=== PATIENT | female | born 1960 | race Caucasian/White ===

== ENCOUNTER → 2023-07-04 | Emergency (ER) | payer OTHER ==
[~2023-07-04] MED LIST: HYDROMORPHONE HCL 1 MG/ML INJ ONE; MORPHINE 4 MG/ML SYR ONE
--- NOTE | 2023-07-04 05:39 | ER ---
Nurse's Notes [facility] Name: Carla Martin Age: 62 yrs Sex: Female : 1960 Arrival Date: 07/04/2023 Time: 03:01 Bed 5 Private MD: Diagnosis: Fracture of upper end of humerus-left Presentation: 07/04 03:15 Chief complaint: Patient states: left shoulder pain of 10 that radiates to left upper pf1 arm,onset 0100 this AM. Patient stated she was cleaning the kitchen, slipped and fell,landed onto left shoulder on the kitchen tile. Patient denies any head injury. Coronavirus screen: Vaccine status: Patient reports receiving the 2nd dose of the covid vaccine. Client denies travel out of the [place] in the last 14 days. At this time, the client does not indicate any symptoms associated with coronavirus-19. Ebola Screen: Patient negative for fever greater than or equal to 101.5 degrees Fahrenheit, and additional compatible Ebola Virus Disease symptoms. Initial Sepsis Screen: Does the patient meet any 2 criteria? HR > 90 bpm. No. Patient's initial sepsis screen is negative. Does the patient have a suspected source of infection?. Risk Assessment: Do you want to hurt yourself or someone else? Patient reports no desire to harm self or others. 03:15 Method Of Arrival: Ambulatory pf1 03:15 Acuity: GABINO 3 pf1 03:46 Onset of symptoms was July 04, 2023. jw7 Historical: - Allergies: 03:20 No Known Allergies; pf1 - PMHx: 03:20 Hypertensive disorder; acid reflux; anxiety; pf1 - PSHx: 03:20 tubal ligation; pf1 - Immunization history:: Adult Immunizations up to date, Client reports receiving the 2nd dose of the Covid vaccine, Last tetanus immunization: < 10 years ago Flu vaccine is not up to date. - Social history:: Smoking status: Reported history of juuling and/or vaping. Patient uses alcohol, occasionally. Patient/guardian denies using street drugs. Screenin:45 [facility] ED Fall Risk Assessment (Adult) History of falling in the last 3 months, jw7 including since admission Yes- single mechanical fall (1 pt) Confusion or Disorientation No (0 pts) Intoxicated or Sedated No (0 pts) Impaired Gait No (0 pts) Mobility Assist Device Used No (0 pt) Altered Elimination No (0 pt) Score/Fall Risk Level 0 - 2 = Low Risk Oriented to surroundings, Maintained a safe environment, Educated pt \T\ family on fall prevention, incl call for assistance when getting out of bed. Abuse screen: Denies threats or abuse. Denies injuries from another. Nutritional screening: No deficits noted. Tuberculosis screening: No symptoms or risk factors identified. Assessment: 03:44 General: Appears in no apparent distress. uncomfortable, Behavior is calm, cooperative. jw7 Pain: Complains of pain in left shoulder Pain does not radiate. Pain currently is 10 out of 10 on a pain scale. Quality of pain is described as sharp, throbbing, Pain began suddenly, Is continuous. Neuro: Barros Agitation-Sedation Scale (RASS): 0 - Alert and Calm Level of Consciousness is awake, alert, obeys commands, Oriented to person, place, time, situation. Cardiovascular: Capillary refill < 3 seconds Patient's skin is warm and dry. Respiratory: Airway is patent Trachea midline Respiratory effort is even, unlabored, Respiratory pattern is regular, symmetrical. GI: No deficits noted. No signs and/or symptoms were reported involving the gastrointestinal system. : No deficits noted. No signs and/or symptoms were reported regarding the genitourinary system. EENT: No deficits noted. No signs and/or symptoms were reported regarding the EENT system. Derm: Skin is intact, is healthy with good turgor, Skin is dry, Skin is normal, Skin temperature is warm. Musculoskeletal: Circulation, motion, and sensation intact. Range of motion: limited in left shoulder. 04:30 Reassessment: Patient appears in no apparent distress at this time. No changes from jw7 previously documented assessment. Patient and/or family updated on plan of care and expected duration. Pain level reassessed. Patient is alert, oriented x 3, equal unlabored respirations, skin warm/dry/pink. 05:38 Reassessment: Patient appears in no apparent distress at this time. No changes from jw7 previously documented assessment. Patient and/or family updated on plan of care and expected duration. Pain level reassessed. Patient is alert, oriented x 3, equal unlabored respirations, skin warm/dry/pink. Vital Signs: 03:15 BP 142 / 85; Pulse 110; Resp 16; Temp 97.5; Pulse Ox 97% on R/A; Weight 72.57 kg; pf1 Height 5 ft. 1 in. ; Pain 10/10; 03:40 BP 139 / 84; Pulse 110; Resp 17 S; Pulse Ox 97% on R/A; jw7 04:30 BP 124 / 81; Pulse 108; Resp 16 S; Pulse Ox 96% on R/A; jw7 05:39 BP 129 / 82; Pulse 108; Resp 16 S; Pulse Ox 98% on R/A; jw7 03:15 Body Mass Index 30.23 (72.57 kg, 154.94 cm) pf1 03:15 Pain Scale: Adult pf1 ED Course: 03:05 Patient arrived in ED. ag3 03:19 Jag Perez PA is PHCP. cp 03:19 Jag Hernandez MD is Attending Physician. cp 03:20 Triage completed. pf1 03:45 Patient has correct armband on for positive identification. Bed in low position. Call jw7 light in reach. 03:46 Arm band placed on. jw7 05:23 XRAY Shoulder LEFT 2 view In Process Unspecified. EDMS 05:37 Nishant Nunez MD is Referral Physician. cp 05:40 No provider procedures requiring assistance completed. Patient did not have IV access jw7 during this emergency room visit. 05:41 Provided Education on: discharge instructions. jw7 Administered Medications: 03:43 Drug: morphine IM 4 mg IM once Route: IM; Site: right deltoid; jw7 05:38 Follow up: Response: No adverse reaction; No change in condition jw7 05:38 Drug: HYDROmorphone IM 1 mg IM once Route: IM; Site: left deltoid; jw7 06:03 Follow up: Response: No adverse reaction jw7 Medication: 05:41 VIS not applicable for this client. jw7 Outcome: 05:38 Discharge ordered by . cp 06:03 Discharged to home ambulatory, jw7 06:03 Condition: stable 06:03 Discharge instructions given to patient, Instructed on discharge instructions, follow up and referral plans. medication usage, Demonstrated understanding of instructions, follow-up care, medications, Prescriptions given X 2, 06:03 Patient left the ED. jw7 Signatures: Dispatcher [employer] EDPA Jag Perez PA PA Mar Nam ag3 Vanesa Lares, RN RN jw7 Sheryl Kong, RN RN pf1
--- NOTE | 2023-07-04 05:39 | EDPHYS ---
Physician Documentation [facility] Name: Carla Martin Age: 62 yrs Sex: Female : 1960 Arrival Date: 07/04/2023 Time: 03:01 Bed 5 Private MD: ED Physician Jag Hernandez HPI: 07/04 03:33 This 62 yrs old Female presents to ER via Ambulatory with complaints of Fall Injury, cp Shoulder Pain. 03:33 The patient or guardian complains of decreased range of motion, an injury, pain, that cp is acute. left shoulder. Context: slip and fall in kitchen at home. Onset: The symptoms/episode began/occurred this morning, about 0100. Associated signs and symptoms: Pertinent negatives: abdominal pain, chest pain, neck pain, Numbness in left hand and left arm Weakness in left hand and left arm. Severity of symptoms: in the emergency department the symptoms a " 10" out of "10". Treatment prior to arrival includes: no previous treatment. 03:33 Modifying factors: The symptoms are aggravated by movement. cp Historical: - Allergies: 03:20 No Known Allergies; pf1 - PMHx: 03:20 Hypertensive disorder; acid reflux; anxiety; pf1 - PSHx: 03:20 tubal ligation; pf1 - Immunization history:: Adult Immunizations up to date, Client reports receiving the 2nd dose of the Covid vaccine, Last tetanus immunization: < 10 years ago Flu vaccine is not up to date. - Social history:: Smoking status: Reported history of juuling and/or vaping. Patient uses alcohol, occasionally. Patient/guardian denies using street drugs. ROS: 03:35 MS/extremity: Positive for decreased range of motion, pain, of the left shoulder, cp Negative for deformity, paresthesias, 03:35 Constitutional: Negative for body aches, chills, fever, cp 03:35 Neck: Negative for pain with movement, pain at rest, stiffness, bony tenderness, 03:35 Cardiovascular: Negative for chest pain, 03:35 Abdomen/GI: Negative for abdominal pain, 03:35 Back: Negative for pain at rest, pain with movement, 03:35 Neuro: Negative for altered mental status, headache, loss of consciousness, syncope, weakness, 03:35 All other systems are negative, Exam: 03:40 Constitutional: The patient appears in no acute distress, alert, awake, non-toxic, well cp developed, well nourished, in obvious pain, uncomfortable, 03:40 Head/Face: Normocephalic, atraumatic. cp 03:40 Eyes: Periorbital structures: appear normal, Conjunctiva: normal, no exudate, no cp injection, Sclera: no appreciated abnormality, Lids and lashes: appear normal, bilaterally, 03:40 ENT: External ear(s): are unremarkable, Nose: is normal, Mouth: Lips: moist, Oral mucosa: moist, Posterior pharynx: is normal, airway is patent, no erythema, no exudate, 03:40 Neck: C-spine: vertebral tenderness, is not appreciated, crepitus, is not appreciated, ROM/movement: is normal, is supple, without pain, no range of motions limitations, 03:40 Chest/axilla: Inspection: normal, Palpation: is normal, no crepitus, no tenderness, 03:40 Cardiovascular: Rate: tachycardic, Rhythm: regular, Pulses: Pulses are 2+ in left radial artery. 03:40 Respiratory: the patient does not display signs of respiratory distress, Respirations: normal, no use of accessory muscles, no retractions, labored breathing, is not present, Breath sounds: are clear throughout, no decreased breath sounds, no stridor, no wheezing, 03:40 Abdomen/GI: Exam negative for discomfort, distension, guarding, Inspection: abdomen appears normal, 03:40 Back: pain, is absent, ROM is normal, 03:40 Musculoskeletal/extremity: Extremities: noted in the left shoulder: decreased ROM, pain, tenderness, There is no evidence of deformity, ROM: limited passive range of motion due to pain, in the left shoulder, the left shoulder Severe pain noted. 03:40 Neuro: Orientation: to person, place \\T\\ time. Mentation: is normal, Motor: moves all fours, strength is normal, Sensation: is normal, Vital Signs: 03:15 BP 142 / 85; Pulse 110; Resp 16; Temp 97.5; Pulse Ox 97% on R/A; Weight 72.57 kg; pf1 Height 5 ft. 1 in. ; Pain 10/10; 03:40 BP 139 / 84; Pulse 110; Resp 17 S; Pulse Ox 97% on R/A; jw7 04:30 BP 124 / 81; Pulse 108; Resp 16 S; Pulse Ox 96% on R/A; jw7 05:39 BP 129 / 82; Pulse 108; Resp 16 S; Pulse Ox 98% on R/A; jw7 03:15 Body Mass Index 30.23 (72.57 kg, 154.94 cm) pf1 03:15 Pain Scale: Adult pf1 MDM: 03:23 Patient medically screened. cp 03:45 Differential diagnosis: Anterior dislocation with fracture, Anterior dislocation cp without fracture, Posterior dislocation with fracture, Posterior dislocation without fracture, humeral head fracture. 05:38 Data reviewed: vital signs, nurses notes, radiologic studies, plain films. cp 05:38 I considered the following discharge prescriptions or medication management in the cp emergency department Medications were administered in the Emergency Department. See MAR. Independent interpretation of the following test(s) in the Emergency Department X-Ray: My interpretation is images of left shoulder show fracture of proximal left humerus. Test considered but Not performed: CT: chest. Care significantly affected by the following chronic conditions: Hypertension. Counseling: I had a detailed discussion with the patient and/or guardian regarding the historical points, exam findings, and any diagnostic results supporting the discharge/admit diagnosis, radiology results, the need for outpatient follow up, a orthopedic surgeon, to return to the emergency department if symptoms worsen or persist or if there are any questions or concerns that arise at home. Response to treatment: the patient's symptoms have markedly improved after treatment, and as a result, I will discharge patient. 07/04 03:29 Order name: XRAY Shoulder LEFT 2 view cp 07/04 05:09 Order name: Sling; Complete Time: 05:38 cp Administered Medications: 03:43 Drug: morphine IM 4 mg IM once Route: IM; Site: right deltoid; jw7 05:38 Follow up: Response: No adverse reaction; No change in condition jw7 05:38 Drug: HYDROmorphone IM 1 mg IM once Route: IM; Site: left deltoid; jw7 06:03 Follow up: Response: No adverse reaction jw7 Disposition Summary: 07/04/23 05:38 Discharge Ordered Notes: Location: Home cp Problem: new cp Symptoms: have improved cp Condition: Stable cp Diagnosis - Fracture of upper end of humerus - left cp Followup: cp - With: Nishant Nunez MD - When: 2 - 3 days - Reason: Recheck today's complaints Discharge Instructions: - Discharge Summary Sheet cp - Humerus Fracture Treated With Immobilization cp Forms: - Medication Reconciliation Form cp - Thank You Letter cp - Antibiotic Education cp - Prescription Opioid Use cp - Patient Portal Instructions cp - Leadership Thank You Letter cp Prescriptions: - acetaminophen-codeine 300-30 mg Oral tablet - take 2 tablet ORAL route every 8 hours as needed for pain; 20 tablet; Refills: cp 0, Product Selection Permitted - Ibuprofen 800 mg Oral Tablet - take 1 tablet ORAL route every 8 hours As needed take with food; 30 tablet; cp Refills: 0, Product Selection Permitted Signatures: Dispatcher [employer] EDMS Jag Perez PA PA cp Waits, Jodi RN RN jw7 Sheryl Kong RN RN pf1
[2023-07-04 07:06] VITALS: TEMP 97.5
[2023-07-04 07:14] VITALS: BP 129/82; O2SAT 98
--- NOTE | 2023-07-04 17:58 | RAD REPORT ---
EXAM DESCRIPTION: RAD - Shoulder Left 2 View - 07/04/2023 5:21 am CLINICAL HISTORY: The patient is 62 years old and is Female; fall;Pain Bed Name: 5 TECHNIQUE: 2 frontal views of the left shoulder. COMPARISON: No relevant prior studies available. FINDINGS: BONES/JOINTS: Slightly impacted fracture of the left humeral neck, without appreciable d islocation allowing for anterior only views. No other acute osseous abnormality. SOFT TISSUES: Unremarkable IMPRESSION: Slightly impacted fracture of the left humeral neck. Electronically signed by: Charles Mesa MD 07/04/2023 07:05 AM SCOURER Due to temporary technical issues with the PACS/Fluency reporting system, reports are being signed by the in house radiologists without review as a courtesy to insure prompt reporting. The interpreting radiologist is fully responsible for the content of the report.
== END ==
LOC: ER 03:01
DX: S42.202A Unspecified fracture of upper end of left humerus, initial encounter for closed fracture (principal); W01.0XXA Fall on same level from slipping, tripping and stumbling without subsequent striking against object, initial encounter
CPT/HCPCS: 73030; 96372; 99284; J1170

== ENCOUNTER 2023-10-04 19:05 | Emergency (ER) | payer OTHER ==
--- OUTSIDE RECORDS SUMMARY | 2023-10-04 19:08 | XMS REPORT | Continuity of Care Document ---
Author Name Unknown Address [address] [facility] [address] [place] [address] [facility] thconnect Address [address] [address] [address] [place] [address] Care Team Providers Care Mold Changer Name Role Phone Arlene Aden Attending Clinician Unavailable Problems Condition Name Condition Details Condition Category Status Onset Date Resolution Date Last Treatment Date Treating Clinician Comments Source [id number] Other closed displaced fracture of proximal end of right humerus, initial encounter Problem [facility] [id number] Pain, joint, shoulder, left Problem [facility] [id number] GERD without esophagiti s Problem [facility] [id number] Essential (primary) hypertensi on Problem [facility] Allergic rhinitis Non-season al allergic rhinitis, unspecifie d trigger Problem [facility] [id number] Moderate major depression Problem [facility] [id number] Mixed hyperlipid emia Problem [facility] Social History Social Habit Start Date Stop Date Quantity Comments Source Sex Assigned At [facility] History of Tobacco Use [facility] Smoking Status Start Date Stop Date Source Former Smoker 2023-08-04 00:00:00 2023-08-04 00:00:00 [facility] Medications Ordered Medication Name Filled Medication Name Start Date Stop Date Current Medication? Ordering Clinician Indication Dosage Frequency Signature (SIG) Comments Components Source Rosuvastati n Calcium 10 MG Rosuvastati n Calcium 10 MG 2024-0 1-30 00:00: 00 No 1{table t} QD Rosuvastat in Calcium 10 MG Rosuvastati n Calcium 10 MG Rosuvastati n Calcium 10 MG 2024-0 1-30 00:00: 00 No 1{table t} QD Rosuvastat in Calcium 10 MG Rosuvastati n Calcium 10 MG Rosuvastati n Calcium 10 MG 2024-0 1-30 00:00: 00 No 1{table t} QD Rosuvastat in Calcium 10 MG Rosuvastati n Calcium 10 MG Rosuvastati n Calcium 10 MG 2024-0 1-30 00:00: 00 No 1{table t} QD Rosuvastat in Calcium 10 MG traMADol-Ac etaminophen 37.5-325 MG traMADol-Ac etaminophen 37.5-325 MG 2024-0 1- 00:00: 00 No 1{table ts_as_n eeded} QID traMADol-A cetaminoph en 37.5-325 MG traMADol-Ac etaminophen 37.5-325 MG traMADol-Ac etaminophen 37.5-325 MG 2024-0 1- 00:00: 00 No 1{table ts_as_n eeded} QID traMADol-A cetaminoph en 37.5-325 MG traMADol-Ac etaminophen 37.5-325 MG traMADol-Ac etaminophen 37.5-325 MG 2024-0 1- 00:00: 00 No 1{table ts_as_n eeded} QID traMADol-A cetaminoph en 37.5-325 MG traMADol-Ac etaminophen 37.5-325 MG traMADol-Ac etaminophen 37.5-325 MG 2024-0 1-10 00:00: 00 No 1{table ts_as_n eeded} QID traMADol-A cetaminoph en 37.5-325 MG traMADol-Ac etaminophen 37.5-325 MG traMADol-Ac etaminophen 37.5-325 MG 2024-0 1-10 00:00: 00 No 1{table ts_as_n eeded} QID traMADol-A cetaminoph en 37.5-325 MG traMADol-Ac etaminophen 37.5-325 MG traMADol-Ac etaminophen 37.5-325 MG 2024-0 1-10 00:00: 00 No 1{table ts_as_n eeded} QID traMADol-A cetaminoph en 37.5-325 MG Acetaminoph en-Codeine 300-60 MG Acetaminoph en-Codeine 300-60 MG 2024-0 1-03 00:00: 00 No 1{table t_as_ne eded} QID Acetaminop hen-Codein e 300-60 MG Acetaminoph en-Codeine 300-60 MG Acetaminoph en-Codeine 300-60 MG 2024-0 1-03 00:00: 00 No 1{table t_as_ne eded} QID Acetaminop hen-Codein e 300-60 MG Lisinopril 5 MG Lisinopril 5 MG No 1{table t} QD Lisinopril 5 MG amLODIPine Besylate 10 MG amLODIPine Besylate 10 MG No 1{table t} QD amLODIPine Besylate 10 MG Ibuprofen 800 MG Ibuprofen 800 MG No Ibuprofen 800 MG Pantoprazol e Sodium 40 MG Pantoprazol e Sodium 40 MG No 1{table t} QD Pantoprazo le Sodium 40 MG Loratadine 10 MG Loratadine 10 MG No 1{table t} QD Loratadine 10 MG Sertraline HCl 25 MG Sertraline HCl 25 MG No 1{table t} QD Sertraline HCl 25 MG Pantoprazol e Sodium 40 MG Pantoprazol e Sodium 40 MG No 1{table t} QD Pantoprazo le Sodium 40 MG Lisinopril 5 MG Lisinopril 5 MG No 1{table t} QD Lisinopril 5 MG Loratadine 10 MG Loratadine 10 MG No Loratadine 10 MG Acetaminoph en-Codeine 300-30 MG Acetaminoph en-Codeine 300-30 MG No Acetaminop hen-Codein e 300-30 MG Ibuprofen 800 MG Ibuprofen 800 MG No Ibuprofen 800 MG Sertraline HCl 25 MG Sertraline HCl 25 MG No 1{table t} QD Sertraline HCl 25 MG amLODIPine Besylate 10 MG amLODIPine Besylate 10 MG No 1{table t} QD amLODIPine Besylate 10 MG Pantoprazol e Sodium 40 MG Pantoprazol e Sodium 40 MG No 1{table t} QD Pantoprazo le Sodium 40 MG Lisinopril 5 MG Lisinopril 5 MG No 1{table t} QD Lisinopril 5 MG Loratadine 10 MG Loratadine 10 MG No Loratadine 10 MG Acetaminoph en-Codeine 300-30 MG Acetaminoph en-Codeine 300-30 MG No Acetaminop hen-Codein e 300-30 MG Ibuprofen 800 MG Ibuprofen 800 MG No Ibuprofen 800 MG Sertraline HCl 25 MG Sertraline HCl 25 MG No 1{table t} QD Sertraline HCl 25 MG amLODIPine Besylate 10 MG amLODIPine Besylate 10 MG No 1{table t} QD amLODIPine Besylate 10 MG Lisinopril 5 MG Lisinopril 5 MG No 1{table t} QD Lisinopril 5 MG amLODIPine Besylate 10 MG amLODIPine Besylate 10 MG No 1{table t} QD amLODIPine Besylate 10 MG Ibuprofen 800 MG Ibuprofen 800 MG No Ibuprofen 800 MG Pantoprazol e Sodium 40 MG Pantoprazol e Sodium 40 MG No 1{table t} QD Pantoprazo le Sodium 40 MG Loratadine 10 MG Loratadine 10 MG No 1{table t} QD Loratadine 10 MG Sertraline HCl 25 MG Sertraline HCl 25 MG No 1{table t} QD Sertraline HCl 25 MG Lisinopril 5 MG Lisinopril 5 MG No 1{table t} QD Lisinopril 5 MG amLODIPine Besylate 10 MG amLODIPine Besylate 10 MG No 1{table t} QD amLODIPine Besylate 10 MG Ibuprofen 800 MG Ibuprofen 800 MG No Ibuprofen 800 MG Pantoprazol e Sodium 40 MG Pantoprazol e Sodium 40 MG No 1{table t} QD Pantoprazo le Sodium 40 MG Loratadine 10 MG Loratadine 10 MG No 1{table t} QD Loratadine 10 MG Sertraline HCl 25 MG Sertraline HCl 25 MG No 1{table t} QD Sertraline HCl 25 MG Lisinopril 5 MG Lisinopril 5 MG No 1{table t} QD Lisinopril 5 MG amLODIPine Besylate 10 MG amLODIPine Besylate 10 MG No 1{table t} QD amLODIPine Besylate 10 MG Ibuprofen 800 MG Ibuprofen 800 MG No Ibuprofen 800 MG Pantoprazol e Sodium 40 MG Pantoprazol e Sodium 40 MG No 1{table t} QD Pantoprazo le Sodium 40 MG Loratadine 10 MG Loratadine 10 MG No 1{table t} QD Loratadine 10 MG Sertraline HCl 25 MG Sertraline HCl 25 MG No 1{table t} QD Sertraline HCl 25 MG Vital Signs Vital Name Observation Time Observation Value Comments [facility] blood pressure diastolic 2023-08-04 13:20:00 82 mm[Hg] Common [facility] height 2023-08-04 13:20:00 61 [in_i] Commo n [facility] weight 2023-08-04 13:20:00 158.4 [lb_av] Co mmon [facility] temperature 2023-08-04 13:20:00 97.4 [degF] Com [facility] bmi 2023-08-04 13:20:00 29.93 kg/m2 Comm on [facility] oximetry 2023-08-04 13:20:00 97 % Commo n [facility] respiratory rate 2023-08-04 13:20:00 16 /min [facility] blood pressure systolic 2023-08-04 13:20:00 134 mm[Hg] [facility] height 2023-07-15 09:00:00 61 [in_i] Commo n [facility] weight 2023-07-15 09:00:00 166 [lb_av] Comm on [facility] temperature 2023-07-15 09:00:00 97.8 [degF] Com [facility] bmi 2023-07-15 09:00:00 31.36 kg/m2 Comm on [facility] blood pressure systolic 2023-07-15 09:00:00 130 mm[Hg] [facility] blood pressure diastolic 2023-07-15 09:00:00 97 mm[Hg] [facility] height 2023-07-07 15:20:00 61 [in_i] Commo n [facility] weight 2023-07-07 15:20:00 166 [lb_av] Comm on [facility] temperature 2023-07-07 15:20:00 97.2 [degF] Com mon [facility] bmi 2023-07-07 15:20:00 31.36 kg/m2 Comm on [facility] oximetry 2023-07-07 15:20:00 96 % Commo n [facility] respiratory rate 2023-07-07 15:20:00 17 /min [facility] blood pressure systolic 2023-07-07 15:20:00 138 mm[Hg] [facility] blood pressure diastolic 2023-07-07 15:20:00 82 mm[Hg] [facility] Encounters Start Date/Time End Date/Time Encounter Type Admission Type Attending [facility] Care Facility Care Department Encounter ID Source 2023-08-04 13:18:00 Outpatient Aden, Arlene [facility]LMLC ST[facility]MLC [id number] [facility] 2023-07-31 09:58:02 Outpatient Aden, Arlene STLMLC ST[facility] [id number] [facility] 2023-07-15 12:52:01 Outpatient Aden, Arlene STLMLC STLMLC [id number] [facility] 2023-07-10 09:56:01 Outpatient Aden, Arlene STLMLC STLMLC [id number] [facility] 2023-07-08 11:24:01 Outpatient Aden, Arlene [facility]LMLC STLML[facility] [id number] [facility] 2023-07-07 14:48:01 Outpatient Aden, Arlene STLMLC STLMLC [id number] [facility] 2023-08-04 00:00:00 2023-08-04 00:00:00 OFFICE VISIT ESTAB PT LEVEL [id number] [facility] 2023-07-15 00:00:00 2023-07-15 00:00:00 (MANAGER DIABETES) New Patient STLMLC STLMLC [id number] [facility] 2023-07-15 00:00:00 2023-07-15 00:00:00 (TEL) STLMLC STLMLC [id number] [facility] 2023-07-15 00:00:00 2023-07-15 00:00:00 (TEL) [facility]LMLC STLMLC [id number] [facility] 2023-07-08 00:00:00 2023-07-08 00:00:00 (TEL) [facility]LMLC STLMLC [id number] [facility] 2023-07-07 00:00:00 2023-07-07 00:00:00 OFFICE VISIT NEW PT LEVEL [id number] [facility] Results Test Description Test Time Test Comments Results Result Co mments Source VITAMIN D, 25 [id number] 00:00:00* Test Item Value Reference Range Interpretation Comme nts VITAMIN D, 25 OH (test code = 1988-3) 25 NG/ML SEE BELOW NG/ML L LIPID PANEL WITH REFLEX DIRECT [id number] 00:00:00* Test Item Value Reference Range Interpretation Comme nts CALC LDL CHOL (test code = 23976-3) 139 MG/DL See_Comment H [Automated Overblog] The system which generated this result transmitted reference range: <100 MG/DL. The reference range was not used to interpret this result as normal/abnormal. CHOLESTEROL (test code = 2093-3) 234 MG/DL See_Comment H [Automated Internal Gaminga videoNEXT] The system which generated this result transmitted reference range: <200 MG/DL. The reference range was not used to interpret this result as normal/abnormal. HDL CHOLESTEROL (test code = 2085-9) 63 MG/DL See_Comment [Automated Overblog] The system which generated this result transmitted reference range: >39 MG/DL. The reference range was not used to interpret this result as normal/abnormal. RISK RATIO LDL/HDL (test code = 71729-0) 2.21 RATIO See_Comment [Automated message] The system which generated this result transmitted reference range: <3.22 RATIO. The reference range was not used to interpret this result as normal/abnormal. TRIGLYCERIDES (test code = 2571-8) 182 MG/DL See_Comment H [Automated messa ge] The system which generated this result transmitted reference range: <150 MG/DL. The reference range was not used to interpret this result as normal/abnormal. COMPREHENSIVE METABOLIC [id number] 00:00:00* Test Item Value Reference Range Interpretation Comme nts ALBUMIN (test code = 1751-7) 4.6 G/DL See_Comment [Automated messa ge] The system which generated this result transmitted reference range: 3.5-5.2 G/DL. The reference range was not used to interpret this result as normal/abnormal. ALKALINE PHOSPHATASE (test code = 6768-6) 137 U/L See_Comment H [Automated message] The system which generated this result transmitted reference range: 40-136 U/L. The reference range was not used to interpret this result as normal/abnormal. BILIRUBIN, TOTAL (test code = 1975-2) 0.5 MG/DL See_Comment [Automated message] The system which generated this result transmitted reference range: <=1.2 MG/DL. The reference range was not used to interpret this result as normal/abnormal. BUN (test code = 3094-0) 11 MG/DL See_Comment [Automated messa ge] The system which generated this result transmitted reference range: 8-23 MG/DL. The reference range was not used to interpret this result as normal/abnormal. CALCIUM (test code = 22597-7) 10.0 MG/DL See_Comment [Automated messa ge] The system which generated this result transmitted reference range: 8.5-10.5 MG/DL. The reference range was not used to interpret this result as normal/abnormal. CALC A/G RATIO (test code = 1759-0) 1.5 RATIO See_Comment [Automated messa ge] The system which generated this result transmitted reference range: 1.0-2.6 RATIO. The reference range was not used to interpret this result as normal/abnormal. CALC BUN/CREAT (test code = 3097-3) 12 RATIO See_Comment [Automated messa ge] The system which generated this result transmitted reference range: 6-28 RATIO. The reference range was not used to interpret this result as normal/abnormal. CALC GLOBULIN (test code = 12631-5) 3.1 G/DL See_Comment [Automated messa ge] The system which generated this result transmitted reference range: 1.9-3.7 G/DL. The reference range was not used to interpret this result as normal/abnormal. CARBON DIOXIDE (test code = 1963-8) 26 MEQ/L See_Comment [Automated messa ge] The system which generated this result transmitted reference range: 19-31 MEQ/L. The reference range was not used to interpret this result as normal/abnormal. CHLORIDE (test code = 2075-0) 100 MEQ/L See_Comment [Automated messa ge] The system which generated this result transmitted reference range: 95-107 MEQ/L. The reference range was not used to interpret this result as normal/abnormal. CREATININE (test code = 2160-0) 0.90 MG/DL See_Comment [Automated messa ge] The system which generated this result transmitted reference range: 0.60-1.30 MG/DL. The reference range was not used to interpret this result as normal/abnormal. eGFR (2020 CKD-EPI) (test code = 67768-5) 73 ML/MIN/1.73 See_Comment [Automated messa ge] The system which generated this result transmitted reference range: >60 ML/MIN/1.73. The reference range was not used to interpret this result as normal/abnormal. GLUCOSE (test code = 1558-6) 129 MG/DL See_Comment H [Automated messa ge] The system which generated this result transmitted reference range: 70-99 MG/DL. The reference range was not used to interpret this result as normal/abnormal. POTASSIUM (test code = 2823-3) 4.7 MEQ/L See_Comment [Automated messa ge] The system which generated this result transmitted reference range: 3.5-5.4 MEQ/L. The reference range was not used to interpret this result as normal/abnormal. PROTEIN, TOTAL (test code = 2885-2) 7.7 G/DL See_Comment [Automated messa ge] The system which generated this result transmitted reference range: 6.1-8.3 G/DL. The reference range was not used to interpret this result as normal/abnormal. AST (test code = 1920-8) 42 U/L See_Comment H [Automated messa ge] The system which generated this result transmitted reference range: 9-40 U/L. The reference range was not used to interpret this result as normal/abnormal. ALT (test code = 1742-6) 46 U/L See_Comment H [Automated messa ge] The system which generated this result transmitted reference range: 5-40 U/L. The reference range was not used to interpret this result as normal/abnormal. SODIUM (test code = 2951-2) 141 MEQ/L See_Comment [Automated messa ge] The system which generated this result transmitted reference range: 133-146 MEQ/L. The reference range was not used to interpret this result as normal/abnormal.
[2023-10-04] MEDS ORDERED: MORPHINE 4 MG/ML SYR ONE (19:58)
[2023-10-04] MEDS ORDERED: NA CHLORIDE 0.9% 1,000 ML ONE (19:58)
[2023-10-04] MEDS ORDERED: ONDANSETRON 4 MG/2 ML VIAL ONE (19:58)
[2023-10-04 20:00] LABS: Absolute Basophils 0.1 K/uL (0-0.5); Absolute Eosinophils 0.2 K/uL (0-0.5); Absolute Lymphocytes (CBC) 2.3 K/uL (0.7-4.9); Absolute Monocytes 0.7 K/uL (0.1-1.3); Absolute Neutrophil 7.2 K/uL (1.8-8.0); Basophils % 0.6 % (0-1.3); Eosinophils % 1.6 % (0-4.4); Hematocrit 39.6 % (36.0-45.0); Hemoglobin 13.5 g/dL (12.0-15.0); MCH 32.8 pg (27.0-35.0); MCHC 33.9 g/dL (32.0-36.0); MCV 96.7 fL (80-100); MPV 8.1 fL (7.6-11.3); Monocytes % 7.1 % (3.3-12.3); Neutrophils % 68.7 % (41.7-73.7); Nucleated Red Blood Cells % 0.1 % (0-0); Platelets 342 thou/uL (152-406); Red Cell Distribution Width 14.7 % (12.1-15.2)
[2023-10-04 20:13] LABS: PT Prothrombin Time 10.2 SECONDS (9.5-12.5); PTT, Activated Partial Thromb 33.2 SECONDS (24.3-36.9); Protime INR 0.93
[2023-10-04 20:26] LABS: Albumin 3.7 g/dL (3.4-5.0); Albumin/Globulin Ratio 0.9 (1.1-1.8); Anion Gap 9.9 mEq/L (5.0-15.0); Bilirubin Total 0.1 mg/dL (0.2-1.0); Globulin 3.9 g/dL (2.3-3.5); Protein, Total 7.6 g/dL (6.4-8.2)
[2023-10-04 20:27] LABS: Potassium 3.9 mEq/L (3.5-5.1)
--- NOTE | 2023-10-04 21:11 | RAD REPORT ---
EXAM DESCRIPTION: CTAbdomen Pelvis W Contrast - 10/04/2023 8:54 pm CLINICAL HISTORY: right lower abdomen pain COMPARISON: No comparisons TECHNIQUE: CT of the abdomen and pelvis was performed. All CT scans are performed using dose optimization technique as appropriate and may include automated exposure control or mA/KV adjustment according to patient size. FINDINGS: Lower chest: Mild circumferential thickened distal esophagus. Liver: 14 mm exophytic structure along the inferior aspect of the right hepatic lobe. This has a vincenzo lar attenuation value to the adjacent liver. It could represent a lesion or lobulation. Biliary: Cholelithiasis. Distended gallbladder. No pericholecystic inflammatory changes. Extrahepatic common bile duct is dilated measuring 11 mm. Stomach: No significant focal abnormality. Duodenum: No significant focal abnormality. Pancreas: 11 mm cystic lesion in the pancreatic body. No pancreatic ductal dilatation. Spleen: No significant abnormality. Adrenal: No suspicious lesions. Kidney/ureter: No hydronephrosis. No renal calculi. Too small to characterize and/or benign appearing renal lesions are noted. Retroperitoneum: No retroperitoneal adenopathy. Vascular: No aneurysm. Atherosclerosis. Bowel: No significant focal abnormality. Peritoneum: No ascites or free air. Bladder: Grossly unremarkable. Reproductive: No adnexal masses. Bones: No acute fracture. Moderate disc height loss at L5-S1 . Other: n/a IMPRESSION: No acute intra-abdominal or pelvic finding. Cholelithiasis without CT evidence of acute cholecystitis . No appendicitis. No urinary tract calculi. Incidental findings including a possible lesion versus lobulation involving the inferior right hepati c lobe and cystic lesion at the pancreatic body. Nonemergent hepatic protocol MRI could further evalu ate both findings.
[2023-10-04 21:24] LABS: Specific Gravity 1.018 (1.005-1.030); Sqamous Epithelial <5 /HPF (None Seen); Urine Bacteria <20 /HPF (<20); Urine Bilirubin NEGATIVE (Negative); Urine Blood 1+ (Negative); Urine Clarity Extremely Turbid (Clear); Urine Color Light-Yellow (Yellow); Urine Culture Reflex Order NOT NEEDED; Urine Glucose NEGATIVE (Negative); Urine Ketones TRACE (Negative); Urine Microscopic Reflex YN ORDER UMIC; Urine Mucus Slight /HPF (None Seen); Urine Nitrite NEGATIVE (Negative); Urine Protein TRACE (Negative); Urine Urobilinogen Normal (Normal); Urine WBC <5 /HPF (<5); Urine pH 6.5 (5.0-7.0)
[2023-10-04] MEDS ORDERED: KETOROLAC 30 MG/ML INJ ONE (21:48)
[2023-10-04] MEDS ORDERED: cloNIDine HCL 0.1 MG TAB ONE (21:49)
--- NOTE | 2023-10-04 23:07 | ER ---
Nurse's Notes [facility] Name: Carla Martin Age: 63 yrs Sex: Female : 1960 Arrival Date: 10/04/2023 Time: 19:05 Bed 19 Private MD: Diagnosis: Lumbago with sciatica, right side;Hypertensive heart disease without heart failure Presentation: 10/03 19:14 Chief complaint: Patient states: right sided back/hip pain. has been going on for a few as6 days but it has worsened today. Coronavirus screen: At this time, the client does not indicate any symptoms associated with coronavirus-19. Ebola Screen: No symptoms or risks identified at this time. Initial Sepsis Screen: Does the patient meet any 2 criteria? No. Patient's initial sepsis screen is negative. Does the patient have a suspected source of infection? No. Patient's initial sepsis screen is negative. Risk Assessment: Do you want to hurt yourself or someone else? Patient reports no desire to harm self or others. Onset of symptoms was October 04, 2023. 19:14 Acuity: GABINO 3 as6 19:14 Method Of Arrival: Ambulatory as6 Historical: - Allergies: 19:15 No Known Allergies; as6 - PMHx: 19:15 acid reflux; Anxiety; Hypertensive disorder; as6 - PSHx: 19:15 tubal ligation; as6 - Immunization history:: Adult Immunizations up to date. - Social history:: Smoking status: Reported history of juuling and/or vaping. Screenin:30 [facility] ED Fall Risk Assessment (Adult) History of falling in the last 3 months, rv including since admission No falls in past 3 months (0 pts) Score/Fall Risk Level 0 - 2 = Low Risk Oriented to surroundings, Maintained a safe environment, Educated pt \T\ family on fall prevention, incl call for assistance when getting out of bed, Assessed \T\ reinforced patient's understanding of fall precautions. Abuse screen: Denies threats or abuse. Denies injuries from another. Nutritional screening: No deficits noted. Tuberculosis screening: No symptoms or risk factors identified. Assessment: 19:30 General: Appears uncomfortable, Behavior is calm, cooperative. rv 19:30 Pain: Complains of pain in abdomen. Neuro: Level of Consciousness is awake, alert, rv obeys commands, Oriented to person, place, time, situation. Cardiovascular: Capillary refill < 3 seconds Patient's skin is warm and dry. Respiratory: Airway is patent Respiratory effort is even, unlabored. GI: Abdomen is round non-distended, Reports upper abdominal pain. Derm: Skin is intact. Vital Signs: 19:14 BP 188 / 100; Pulse 110; Resp 19 S; Temp 96.9; Pulse Ox 99% on R/A; Weight 70.76 kg as6 (R); Height 5 ft. 1 in. (R); Pain 9/10; 21:26 BP 182 / 115; Pulse 99; Resp 16; Pulse Ox 96% on R/A; rv 22:55 BP 164 / 83; Pulse 95; Resp 16; Temp 98; Pulse Ox 99% ; rv 19:14 Body Mass Index 29.48 (70.76 kg, 154.94 cm) as6 19:14 Pain Scale: Adult as6 ED Course: 19:08 Patient arrived in ED. ra3 19:13 Arm band placed on. as6 19:15 Triage completed. as6 19:21 Ronaldo Riley MD is Attending Physician. rn 19:21 Jag Perez PA is PHCP. cp 19:30 Patient has correct armband on for positive identification. Client placed on continuous rv cardiac and pulse oximetry monitoring. NIBP monitoring applied. 19:30 No provider procedures requiring assistance completed. Initial lab(s) drawn, by me, rv sent to lab. Inserted saline lock: 20 gauge in right antecubital area, using aseptic technique. Blood collected. 20:49 Urinalysis w/ reflexes Sent. rv 20:56 CT Abd/Pelvis - IV Contrast Only In Process Unspecified. EDMS 23:23 IV discontinued, intact, bleeding controlled, No redness/swelling at site. Pressure rv dressing applied. Administered Medications: 20:22 Drug: morphine IVP or IV 4 mg IVP once over 4 mins Route: IVP; Infused Over: 4 mins; rv Site: right antecubital; 23:23 Follow up: Response: No adverse reaction; Marked relief of symptoms rv 20:22 Drug: Ondansetron IVP 4 mg IVP once; over 2 minutes Route: IVP; Site: right antecubital;rv 23:21 Follow up: Response: No adverse reaction; Marked relief of symptoms rv 20:22 Drug: NS 0.9% IV 1000 ml IV at 999 ml/hr Per protocol; 1000 mL bolus Route: IV; Rate: rv 999 ml/hr; Site: right antecubital; 23:21 Follow up: IV Status: Completed infusion; IV Intake: 1000ml rv 22:05 Drug: cloNIDine PO 0.2 mg PO once Route: PO; rv 23:21 Follow up: Response: No adverse reaction; Marked relief of symptoms rv 22:05 Drug: Ketorolac IVP 15 mg IVP once Route: IVP; Site: right antecubital; rv 23:21 Follow up: Response: No adverse reaction; Marked relief of symptoms rv 23:20 Drug: Lidoderm Topical Patch 5 % (700 mg/patch) 1 patches Topical once; leave on for 12 rv hours; cover most painful area; may cut into smaller pieces {Note: applied to back.} Route: Topical; Site: abdomen; 23:21 Follow up: Response: Medication administered at discharge. rv Medication: 19:30 VIS not applicable for this client. rv Intake: 23:21 IV: 1000ml; Total: 1000ml. rv Outcome: 23:06 Discharge ordered by . cp 23:23 Discharged to home ambulatory, with family, rv 23:23 Condition: good 23:23 Discharge instructions given to patient, family, Instructed on discharge instructions, follow up and referral plans. medication usage, Demonstrated understanding of instructions, follow-up care, medications, Prescriptions given X 2, 23:23 Patient left the ED. rv Signatures: Dispatcher [employer] EDRonaldo Tejada MD MD rn Page, Corey, PA PA cp Darin Davis RN RN rv Benito Conti RN RN as6 Serena Lan 3
--- NOTE | 2023-10-04 23:07 | EDPHYS ---
Physician Documentation [facility] Name: Carla Martin Age: 63 yrs Sex: Female : 1960 Arrival Date: 10/04/2023 Time: 19:05 Bed 19 Private MD: ED Physician Ronaldo Riley HPI: 10/03 19:45 This 63 yrs old Female presents to ER via Ambulatory with complaints of Back Pain, Hip cp Pain, Groin Pain. 19:45 The patient presents with pain that is acute, with no known mechanism of injury. The cp symptoms are located in the right flank. The pain radiates to the right side of abdomen and right hip. 19:45 Onset: The symptoms/episode began/occurred for past several days. Associated signs and cp symptoms: Pertinent negatives: fever, incontinence, numbness, urinary retention, weakness. Modifying factors: the patient symptoms are aggravated by movement. 19:45 yes, history of sciatica pain but this pain different in that pain radiates to hip and cp worse. Historical: - Allergies: 19:15 No Known Allergies; as6 - PMHx: 19:15 acid reflux; Anxiety; Hypertensive disorder; as6 - PSHx: 19:15 tubal ligation; as6 - Immunization history:: Adult Immunizations up to date. - Social history:: Smoking status: Reported history of juuling and/or vaping. ROS: 19:50 Constitutional: Negative for body aches, chills, fever, poor PO intake, cp 19:50 Eyes: Negative for injury, pain, redness, and discharge, cp 19:50 ENT: Negative for drainage from ear(s), ear pain, sore throat, difficulty swallowing, difficulty handling secretions, 19:50 Cardiovascular: Negative for chest pain, 19:50 Respiratory: Negative for cough, shortness of breath, wheezing, 19:50 Abdomen/GI: Positive for abdominal pain, Negative for vomiting, diarrhea, constipation, 19:50 Back: Positive for flank pain, on the right, 19:50 : Negative for urinary symptoms, difficulty urinating, bladder incontinence, 19:50 Neuro: Negative for altered mental status, dizziness, headache, numbness, tingling, weakness, 19:50 All other systems are negative, Exam: 19:55 Constitutional: The patient appears in no acute distress, alert, awake, non-toxic, well cp developed, well nourished, uncomfortable, 19:55 Head/Face: Normocephalic, atraumatic. cp 19:55 Eyes: Periorbital structures: appear normal, Conjunctiva: normal, no exudate, no injection, Sclera: no appreciated abnormality, Lids and lashes: appear normal, bilaterally, 19:55 ENT: External ear(s): are unremarkable, Nose: is normal, Mouth: Lips: moist, Oral mucosa: moist, Posterior pharynx: is normal, airway is patent, no erythema, no exudate, 19:55 Chest/axilla: Inspection: normal, 19:55 Cardiovascular: Rate: tachycardic, Rhythm: regular, Edema: is not appreciated, JVD: is not appreciated, 19:55 Respiratory: the patient does not display signs of respiratory distress, Respirations: normal, no use of accessory muscles, no retractions, labored breathing, is not present, Breath sounds: are clear throughout, no decreased breath sounds, no stridor, no wheezing, 19:55 Abdomen/GI: Inspection: abdomen appears normal, Bowel sounds: active, all quadrants, Palpation: soft, in all quadrants, moderate abdominal tenderness, in the posterior aspect of right lateral abdomen, anterior aspect of right lateral abdomen and right lower quadrant, rebound tenderness, is not appreciated, involuntary guarding, is not appreciated, 19:55 Back: pain, that is moderate, of the right mid back and right low back, ROM is painful, with all movement, 19:55 Skin: no rash present. 19:55 Neuro: Orientation: is normal, Mentation: is normal, Motor: moves all fours, strength is normal, Sensation: is normal, Gait: is steady, at a normal pace, Vital Signs: 19:14 BP 188 / 100; Pulse 110; Resp 19 S; Temp 96.9; Pulse Ox 99% on R/A; Weight 70.76 kg as6 (R); Height 5 ft. 1 in. (R); Pain 9/10; 21:26 BP 182 / 115; Pulse 99; Resp 16; Pulse Ox 96% on R/A; rv 22:55 BP 164 / 83; Pulse 95; Resp 16; Temp 98; Pulse Ox 99% ; rv 19:14 Body Mass Index 29.48 (70.76 kg, 154.94 cm) as6 19:14 Pain Scale: Adult as6 MDM: 19:21 Patient medically screened. 20:00 Differential diagnosis: Cholelithiasis chronic back pain, Pyelonephritis ruptured disc, cp Ureterolithiasis vertebral fracture, sciatica. 23:05 Data reviewed: vital signs, nurses notes, lab test result(s), radiologic studies, CT cp scan. 23:05 I considered the following discharge prescriptions or medication management in the emergency department Medications were administered in the Emergency Department. See MAR. Counseling: I had a detailed discussion with the patient and/or guardian regarding the historical points, exam findings, and any diagnostic results supporting the discharge/admit diagnosis, lab results, radiology results, the need for outpatient follow up, a family practitioner, to return to the emergency department if symptoms worsen or persist or if there are any questions or concerns that arise at home. Response to treatment: the patient's symptoms have markedly improved after treatment, and as a result, I will discharge patient. 10/03 19:34 Order name: Blood Culture Adult (2) 10/03 19:34 Order name: CBC with Diff; Complete Time: 21:04 10/03 19:34 Order name: CMP; Complete Time: 21:04 10/03 19:34 Order name: Lactate w/ 2H reflex if indic.; Complete Time: 21:04 10/03 19:34 Order name: Protime (+inr); Complete Time: 21:04 10/03 19:34 Order name: Ptt, Activated; Complete Time: 21:04 10/03 19:34 Order name: Urinalysis w/ reflexes; Complete Time: 21:36 10/03 19:34 Order name: CT Abd/Pelvis - IV Contrast Only; Complete Time: 21:36 10/03 19:34 Order name: Accucheck; Complete Time: 19:56 10/03 19:34 Order name: Cardiac monitoring; Complete Time: 19:56 10/03 19:34 Order name: EKG - Nurse/Tech; Complete Time: 20:22 10/03 19:34 Order name: IV Saline Lock - Large Bore; Complete Time: 19:56 10/03 19:34 Order name: Labs collected and sent; Complete Time: 19:56 10/03 19:34 Order name: O2 Per Protocol; Complete Time: 19:56 10/03 19:34 Order name: O2 Sat Monitoring; Complete Time: 19:56 cp 10/03 19:34 Order name: Vital Signs; Complete Time: 19:56 cp 10/03 22:39 Order name: Blood Pressure Recheck; Complete Time: 22:55 cp Administered Medications: 20:22 Drug: morphine IVP or IV 4 mg IVP once over 4 mins Route: IVP; Infused Over: 4 mins; rv Site: right antecubital; 23:23 Follow up: Response: No adverse reaction; Marked relief of symptoms rv 20:22 Drug: Ondansetron IVP 4 mg IVP once; over 2 minutes Route: IVP; Site: right antecubital;rv 23:21 Follow up: Response: No adverse reaction; Marked relief of symptoms rv 20:22 Drug: NS 0.9% IV 1000 ml IV at 999 ml/hr Per protocol; 1000 mL bolus Route: IV; Rate: rv 999 ml/hr; Site: right antecubital; 23:21 Follow up: IV Status: Completed infusion; IV Intake: 1000ml rv 22:05 Drug: cloNIDine PO 0.2 mg PO once Route: PO; rv 23:21 Follow up: Response: No adverse reaction; Marked relief of symptoms rv 22:05 Drug: Ketorolac IVP 15 mg IVP once Route: IVP; Site: right antecubital; rv 23:21 Follow up: Response: No adverse reaction; Marked relief of symptoms rv 23:20 Drug: Lidoderm Topical Patch 5 % (700 mg/patch) 1 patches Topical once; leave on for 12 rv hours; cover most painful area; may cut into smaller pieces {Note: applied to back.} Route: Topical; Site: abdomen; 23:21 Follow up: Response: Medication administered at discharge. rv Disposition Summary: 10/04/23 23:06 Discharge Ordered Notes: Location: Home cp Problem: new cp Symptoms: have improved cp Condition: Stable cp Diagnosis - Lumbago with sciatica, right side cp - Hypertensive heart disease without heart failure cp Followup: cp - With: Private Physician - When: 2 - 3 days - Reason: Recheck today's complaints Discharge Instructions: - Discharge Summary Sheet cp - Acute Back Pain, Adult cp - Hypertension, Adult cp - Sciatica cp - Aspirin and Your Heart cp - Back Exercises cp - Form - Blood Pressure Record Sheet cp - How to Take Your Blood Pressure cp Forms: - Medication Reconciliation Form cp - Thank You Letter cp - Antibiotic Education cp - Prescription Opioid Use cp - Patient Portal Instructions cp - Leadership Thank You Letter cp Prescriptions: - Cyclobenzaprine 10 mg Oral tablet - take 1 tablet ORAL route every 8 hours As needed; 20 tablet; Refills: 0, cp Product Selection Permitted - Medrol (Hitesh) 4 mg Oral Tablets, Dose Pack - take 1 tablet ORAL route as directed - follow package instructions; 1 packet; cp Refills: 0, Product Selection Permitted Signatures: Dispatcher [employer] EDMS Jag Perez PA PA cp Darin Davis, RN RN rv Benito Conti, RN RN as6 Corrections: (The following items were deleted from the chart) 19:35 19:34 BLOOD CULTURE*+BA.LAB.BRZ ordered. EDMS EDMS 19:35 19:35 CBC+H.LAB.BRZ ordered. EDMS EDMS 19:35 19:35 COMPREHENSIVE METABOLIC PANEL+C.LAB.BRZ ordered. EDMS EDMS 19:35 19:35 LACTATE+C.LAB.BRZ ordered. EDMS EDMS 19:35 19:35 PROTIME (+INR)+COAG.LAB.BRZ ordered. EDMS EDMS 19:35 19:35 PTT, ACTIVATED+COAG.LAB.BRZ ordered. EDMS EDMS 19:35 19:35 Urinalysis+U.LAB.BRZ ordered. EDMS EDMS 19:35 19:35 Abdomen Pelvis W Con+CT.RAD.BRZ ordered. EDMS EDMS
[2023-10-04] MEDS ORDERED: LIDOCAINE 4% PATCH ONE (23:17)
[2023-10-05 06:00] VITALS: BP 164/83; TEMP 98; O2SAT 99
== END 2023-10-04 23:23 | disposition home or self-care (01) ==
LOC: ER 19:05
DX: M54.41 Lumbago with sciatica, right side (principal); I11.9 Hypertensive heart disease without heart failure; I10 Essential (primary) hypertension
CPT/HCPCS: 96361; 87040 ×2; 85025; 81001; 36415; 85610; 83605; 85730; 80053; 74177; 96375; 96374; 99284; Q9967; J2001; J2405; J7030